=== PATIENT | male | born 1960 | race African-American/Black ===

== ENCOUNTER 2019-02-18 03:55 | Emergency (ER) | payer OTHER ==
[~2019-02-18] VITALS: Ht 182.9 cm; Wt 77.0 kg
[2019-02-18] MEDS ORDERED: SODIUM CHLORIDE 0.9% 1,000 ML IV ONE (04:13)
[2019-02-18 04:37] LABS: CHLORIDE 98 mEq/L (98-107)
[2019-02-18 05:23] LABS: BASOPHILS % 0.9 % (0.0-2.0); EOSINOPHILS % 1.4 % (0.0-5.0); HEMATOCRIT. 36.3 % (42.0-52.0); HEMOGLOBIN. 12.5 g/dL (14.0-18.0); LYMPHOCYTES % 21.4 % (20.0-50.0); MEAN CORPUSCULAR HEMOGLOBIN 34.2 pg (28.0-32.0); MEAN CORPUSCULAR VOLUME 99.7 fL (80.0-94.0); MEAN PLATELET VOLUME 9.2 fl (7.4-10.4); MONOCYTES % 11.7 % (2.0-8.0); NEUTROPHILS % 64.6 % (40.0-76.0); RED BLOOD CELL COUNT 3.65 mill/uL (4.7-6.1); RED CELL DISTRIBUTION WIDTH 13.8 % (11.6-14.6)
[2019-02-18] MEDS ORDERED: MORPHINE SULFATE 4 MG/ML CPJ (NOT FOR IM USE) IV NR (05:30)
[2019-02-18] MEDS ORDERED: SODIUM CHLORIDE 0.9% 1,000 ML IV NR (05:30)
[2019-02-18 05:35] LABS: PLATELET 59 x1000/uL (130-400)
[2019-02-18 07:36] VITALS: BP 140/85
== END 2019-02-18 07:01 | disposition short-term general hospital (02) ==
LOC: ER 03:55
DX: K85.90 Acute pancreatitis without necrosis or infection, unspecified (principal); I10 Essential (primary) hypertension; D69.6 Thrombocytopenia, unspecified; R19.7 Diarrhea, unspecified
CPT/HCPCS: 36415; 71045; 80053; 83690; 85025; 96360; 99285; J7030; Z7610

== ENCOUNTER 2019-06-04 01:03 | Inpatient (IN) | payer OTHER ==
[~2019-06-04] VITALS: Ht 172.7 cm; Wt 91.6 kg
[2019-06-04] VITALS (47 sets, daily range): BP systolic 58–158; BP diastolic 28–116
[2019-06-04] MEDS ORDERED: SODIUM CHLORIDE 0.9% 1,000 ML IV ONE ×2 (02:07→10:12)
[2019-06-04 02:43] LABS: CLARITY URINE TURBID (CLEAR); COLOR URINE DARK YELLOW (YELLOW); KETONES URINE TRACE (NEGATIVE); LEUKOCYTE ESTERASE URINE TRACE (NEGATIVE); NITRITE URINE NEGATIVE (NEGATIVE); OCCULT BLOOD URINE 1+ (NEGATIVE); PROTEIN URINE 2+ (NEGATIVE); SPECIFIC GRAVITY URINE 1.019 (1.005-1.030)
[2019-06-04] MEDS ORDERED: CEFTRIAXONE 1 G PREMIX 50 ML IV ONE (04:00)
[2019-06-04 04:11] LABS: CHLORIDE 96 mEq/L (98-107)
[2019-06-04] MEDS ORDERED: DEXTROSE 50% WATER 50ML SYRINGE IV ONE ×4 (04:21→10:15)
[2019-06-04 04:23] LABS: BASOPHILS % 0.4 % (0.0-2.0); HEMATOCRIT. 28.3 % (42.0-52.0); LYMPHOCYTES % 20.2 % (20.0-50.0); MEAN CORPUSCULAR HEMOGLOBIN 34.3 pg (28.0-32.0); MEAN CORPUSCULAR VOLUME 108.2 fL (80.0-94.0); MEAN PLATELET VOLUME 9.6 fl (7.4-10.4); MONOCYTES % 3.3 % (2.0-8.0); NEUTROPHILS % 76.1 % (40.0-76.0); RED BLOOD CELL COUNT 2.62 mill/uL (4.7-6.1); RED CELL DISTRIBUTION WIDTH 17.3 % (11.6-14.6)
[2019-06-04] MEDS ORDERED: ONDANSETRON HCL 4MG/2ML INJ ONE (05:11)
[2019-06-04] MEDS ORDERED: ONDANSETRON HCL 4MG/2ML INJ IV ONE ×2 (05:15→11:00)
[2019-06-04] MEDS ORDERED: LORAZEPAM 2MG/ML CPJ IV ONE ×4 (06:30→12:00)
[2019-06-04 07:48] LABS: PLATELET ESTIMATE MARKEDLY DECREASED
[2019-06-04 07:49] LABS: PLATELET 31 x1000/uL (130-400)
[2019-06-04] MEDS ORDERED: FOLIC ACID 1 MG, THIAMINE HCL 100 MG, MVI, ADULT NO.1 10 ML in DEXTROSE 5% WATER 1,000 ML IV ONE ×4 (10:15)
[2019-06-04] MEDS ORDERED: SUCCINYLCHOLINE CHLORIDE 200MG/10ML IV ONE ×2 (11:26→11:45)
[2019-06-04] MEDS ORDERED: ETOMIDATE 2MG/ML 10ML VIAL IV ONE ×2 (11:26→11:45)
[2019-06-04] MEDS ORDERED: PANTOPRAZOLE 80 MG in SODIUM CHLORIDE 0.9% 100 ML IV STA (11:32)
[2019-06-04] MEDS ORDERED: MIDAZOLAM HCL 50 MG in DEXTROSE 5% WATER 40 ML IV ONE ×2 (11:45→12:00)
[2019-06-04] MEDS ORDERED: SODIUM CHLORIDE 0.9% 1000ML BAG (SEPSIS BOLUS) IV ONE (11:45)
[2019-06-04] MEDS ORDERED: LEVOFLOXACIN 750MG PREMIX 150 ML IV ONE (11:45)
[2019-06-04] MEDS ORDERED: METRONIDAZOLE 500 MG PREMIX 100 ML IV ONE (11:45)
[2019-06-04] MEDS ORDERED: PANTOPRAZOLE SODIUM 40 MG/VIAL IV ONE (11:45)
[2019-06-04] MEDS ORDERED: LORAZEPAM 2MG/ML CPJ ONE ×2 (11:57→21:30)
[2019-06-04] MEDS ORDERED: NOREPINEPHRINE 4MG/250ML PMX 250 ML IV ONE (12:38)
[2019-06-04 13:19] LABS: BG BASE EXCESS -19.6 mmol/L (-2.0-2.0); BG CARBOXYHEMOGLOBIN 0.1 % (0.5-1.5); BG DEOXYHEMOGLOBIN 9.7 % (0.0-5.0); BG FRACTION INSPIRED OXYGEN 100; BG HCO3 ACT 9.2 mmol/L (22.0-26.0); BG METHEMOGLOBIN 0.5 % (0.0-1.5); BG OXYGEN SATURATION 90.2 % (92.0-98.5); BG OXYHEMOGLOBIN 89.7 % (94.0-97.0); BG PH 7.051 (7.350-7.450); BG PO2 86.9 mmHg (75.0-100.0); BG SAMPLE SITE RIGHT RADIAL; BG TIDAL VOLUME(mL) 500 mL; BG TOTAL HEMOGLOBIN 7.1 g/dL (12.0-18.0); BG VENT MODE VENT - A/C; BG VENT RATE 16 set
[2019-06-04] MEDS ORDERED: ALBUTEROL (0.083%) 2.5MG/3ML NEB HHN PRN (13:30)
[2019-06-04] MEDS ORDERED: LEVOFLOXACIN 500MG PREMIX 100 ML IV ONE (13:30)
[2019-06-04] MEDS ORDERED: PROPOFOL 10MG/ML 100ML 100 ML IV SCH (14:07)
[2019-06-04] MEDS ORDERED: NOREPINEPHRINE 8 MG in DEXT 5% WATER 242 ML IV PRN (14:15)
[2019-06-04] MEDS ORDERED: ATEN-42 MT (14:59)
[2019-06-04] MEDS ORDERED: LEVOFLOXACIN 750MG PREMIX 150 ML IV SCH (15:00)
[2019-06-04 15:02] LABS: BG BASE EXCESS -16.5 mmol/L (-2.0-2.0); BG CARBOXYHEMOGLOBIN 0.2 % (0.5-1.5); BG DEOXYHEMOGLOBIN 4.6 % (0.0-5.0); BG FRACTION INSPIRED OXYGEN 100; BG HCO3 ACT 10.8 mmol/L (22.0-26.0); BG METHEMOGLOBIN 0.3 % (0.0-1.5); BG OXYGEN SATURATION 95.4 % (92.0-98.5); BG OXYHEMOGLOBIN 94.9 % (94.0-97.0); BG PCO2 31.1 mmHg (35.0-45.0); BG PO2 100.8 mmHg (75.0-100.0); BG SAMPLE SITE RIGHT RADIAL; BG TIDAL VOLUME(mL) 500 mL; BG TOTAL HEMOGLOBIN 7.9 g/dL (12.0-18.0); BG VENT MODE VENT - A/C; BG VENT RATE 22 set
[2019-06-04] MEDS ORDERED: ONDANSETRON HCL 4MG/2ML INJ IV PRN (15:30)
[2019-06-04] MEDS ORDERED: SODIUM BICARBONATE 8.4% 1 MEQ/ML 50ML SYR IV NR ×2 (15:45→18:30)
[2019-06-04] MEDS: ALBUTEROL (0.083%) 2.5MG/3ML NEB HHN SCH ×3 (15:54→23:55)
[2019-06-04] MEDS ORDERED: DEXT 5%/0.9% NACL 1,000 ML IV SCH (16:00)
[2019-06-04] MEDS ORDERED: PANTOPRAZOLE 80 MG in SODIUM CHLORIDE 0.9% 100 ML IV SCH (16:30)
[2019-06-04] MEDS: BLOOD SUGAR DIAGNOSTIC STRIP TEST SCH ×3 (16:45→23:03)
[2019-06-04 16:55] LABS: BASOPHILS % 0.4 % (0.0-2.0); EOSINOPHILS % 0.5 % (0.0-5.0); HEMATOCRIT. 25.4 % (42.0-52.0); LYMPHOCYTES % 22.3 % (20.0-50.0); MEAN CORPUSCULAR HEMOGLOBIN 34.8 pg (28.0-32.0); MEAN CORPUSCULAR VOLUME 110.9 fL (80.0-94.0); MEAN PLATELET VOLUME 8.8 fl (7.4-10.4); MONOCYTES % 3.5 % (2.0-8.0); NEUTROPHILS % 73.3 % (40.0-76.0); RED BLOOD CELL COUNT 2.29 mill/uL (4.7-6.1); RED CELL DISTRIBUTION WIDTH 17.1 % (11.6-14.6)
[2019-06-04 17:00] LABS: PLATELET 17 x1000/uL (130-400)
[2019-06-04 17:02] LABS: CHLORIDE 104 mEq/L (98-107)
[2019-06-04] MEDS ORDERED: ALBUMIN HUMAN 25GM/100ML (25%) IV NR (17:15)
[2019-06-04] MEDS ORDERED: CALCIUM GLUCONATE 100MG/ML 10ML VIAL IV ONE (17:30)
[2019-06-04 17:35] LABS: BG BASE EXCESS -13.4 mmol/L (-2.0-2.0); BG CARBOXYHEMOGLOBIN 0.2 % (0.5-1.5); BG DEOXYHEMOGLOBIN 11.9 % (0.0-5.0); BG FRACTION INSPIRED OXYGEN 100; BG HCO3 ACT 11.9 mmol/L (22.0-26.0); BG METHEMOGLOBIN 0.6 % (0.0-1.5); BG OXYHEMOGLOBIN 87.3 % (94.0-97.0); BG PO2 70.1 mmHg (75.0-100.0); BG SAMPLE SITE RIGHT RADIAL; BG TIDAL VOLUME(mL) 500 mL; BG TOTAL HEMOGLOBIN 8.2 g/dL (12.0-18.0); BG VENT MODE VENT - A/C; BG VENT RATE 22 set
[2019-06-04] MEDS ORDERED: PHENYLEPHRINE 20 MG in DEXT 5% WATER 248 ML IV PRN (18:00)
[2019-06-04] MEDS: METRONIDAZOLE 500 MG PREMIX 100 ML IV SCH (18:10)
[2019-06-04] MEDS ORDERED: SODIUM BICARBONATE 50 MEQ in SODIUM CHLORIDE 0.45% 1,000 ML IV SCH (18:15)
[2019-06-04] MEDS ORDERED: PHYTONADIONE 10 MG in DEXTROSE 5% WATER 49 ML IV NR (18:30)
[2019-06-04] MEDS ORDERED: CALCIUM CHLORIDE 1000 MG in DEXTROSE 5% WATER 100 ML IV NR (18:30)
[2019-06-04 18:31] LABS: INR 1.5; PROTHROMBIN TIME 14.8 sec (9.6-11.0)
[2019-06-04] MEDS: MIDAZOLAM HCL 50 MG in DEXTROSE 5% WATER 40 ML IV PRN (18:37)
[2019-06-04] MEDS: THIAMINE HCL 100 MG in SODIUM CHLORIDE 0.9% 49 ML IV SCH (18:54)
[2019-06-04] MEDS: PROPOFOL 10MG/ML 100ML 100 ML IV PRN (18:57)
[2019-06-04] MEDS ORDERED: OCTREOTIDE ACETATE 50 MCG/ML 1ML IV SCH (19:00)
[2019-06-04] MEDS ORDERED: OCTREOTIDE ACETATE 50 MCG/ML 1ML IV ONE (19:00)
[2019-06-04 19:34] LABS: *AMPHETAMINES SCREEN URINE NEGATIVE (NEGATIVE); *BARBITURATES SCREEN URINE NEGATIVE (NEGATIVE); *BENZODIAZEPINES SCREEN URINE PRESUMTIVE POSITIVE (NEGATIVE); *COCAINE SCREEN URINE NEGATIVE (NEGATIVE)
[2019-06-04 19:36] LABS: CANNABINOID URINE SCREEN NEGATIVE (NEGATIVE); METHADONE URINE SCREEN NEGATIVE (NEGATIVE); OPIATES URINE SCREEN NEGATIVE (NEGATIVE); PHENCYCLIDINE URINE SCREEN NEGATIVE (NEGATIVE)
[2019-06-04] MEDS ORDERED: SODIUM CHLORIDE 0.9% 1,000 ML IV NR (19:51)
[2019-06-04] MEDS ORDERED: PANTOPRAZOLE SODIUM 40 MG/VIAL IV SCH (20:00)
[2019-06-04] MEDS: SODIUM CHLORIDE 0.9% 1,000 ML IV SCH ×3 (20:10→22:51)
[2019-06-04 20:24] LABS: BG BASE EXCESS -3.5 mmol/L (-2.0-2.0); BG CARBOXYHEMOGLOBIN 0.1 % (0.5-1.5); BG DEOXYHEMOGLOBIN 4.2 % (0.0-5.0); BG FRACTION INSPIRED OXYGEN 100; BG HCO3 ACT 20.7 mmol/L (22.0-26.0); BG METHEMOGLOBIN 0.4 % (0.0-1.5); BG OXYGEN SATURATION 95.8 % (92.0-98.5); BG OXYHEMOGLOBIN 95.3 % (94.0-97.0); BG PCO2 33.1 mmHg (35.0-45.0); BG PH 7.413 (7.350-7.450); BG PIP 32 cmH2O; BG PO2 86.1 mmHg (75.0-100.0); BG SAMPLE SITE RIGHT RADIAL; BG TIDAL VOLUME(mL) 550 mL; BG TOTAL HEMOGLOBIN 7.1 g/dL (12.0-18.0); BG VENT MODE VENT - A/C; BG VENT RATE 22 set
[2019-06-04] MEDS ORDERED: OCTREOTIDE 50 MCG in SODIUM CHLORIDE 0.9% 50 ML IV SCH (20:30)
[2019-06-04] MEDS ORDERED: OCTREOTIDE 1000MCG in SODIUM CHLORIDE 0.9% 100ML IV SCH (21:00)
[2019-06-04] MEDS: SODIUM BICARBONATE 100 MEQ in DEXTROSE 5% WATER 1,000 ML IV SCH (21:04)
[2019-06-04] MEDS ORDERED: LORAZEPAM 2MG/ML CPJ IV NR (22:08)
[2019-06-04 22:47] LABS: TOTAL IRON BINDING CAPACITY 204 ug/dL (250-450)
[2019-06-04] MEDS: VANCOMYCIN 1 G PREMIX 200 ML IV SCH (23:03)
[2019-06-04] MEDS: METOCLOPRAMIDE HCL 10MG/2ML VIAL IV SCH (23:16)
[2019-06-05] VITALS (109 sets, daily range): BP systolic 93–165; BP diastolic 43–103
[2019-06-05] MEDS: METRONIDAZOLE 500 MG PREMIX 100 ML IV SCH ×3 (00:30→16:51)
[2019-06-05] MEDS: PROPOFOL 10MG/ML 100ML 100 ML IV PRN ×4 (00:30→23:23)
[2019-06-05] MEDS: MIDAZOLAM HCL 50 MG in DEXTROSE 5% WATER 40 ML IV PRN ×3 (00:44→20:59)
[2019-06-05] MEDS: ALBUTEROL (0.083%) 2.5MG/3ML NEB HHN SCH ×5 (03:51→20:29)
[2019-06-05] MEDS: BLOOD SUGAR DIAGNOSTIC STRIP TEST SCH ×6 (04:58→23:57)
[2019-06-05] MEDS: SODIUM CHLORIDE 0.9% 1,000 ML IV SCH (05:12)
[2019-06-05] MEDS: METOCLOPRAMIDE HCL 10MG/2ML VIAL IV SCH ×4 (05:21→23:57)
[2019-06-05 07:06] LABS: CHLORIDE 100 mEq/L (98-107)
[2019-06-05 07:12] LABS: INR 1.4; PHOSPHORUS 2.7 mg/dL (2.5-4.9); PROTHROMBIN TIME 14.1 sec (9.6-11.0)
[2019-06-05] MEDS ORDERED: MAGNESIUM 4 G PREMIX 100 ML IV NR ×2 (07:30→15:00)
[2019-06-05 07:32] LABS: BASOPHILS % 0.2 % (0.0-2.0); EOSINOPHILS % 0.5 % (0.0-5.0); HEMATOCRIT. 22.9 % (42.0-52.0); HEMOGLOBIN. 8.1 g/dL (14.0-18.0); LYMPHOCYTES % 8.3 % (20.0-50.0); MEAN CORPUSCULAR HEMOGLOBIN 34.7 pg (28.0-32.0); MEAN CORPUSCULAR VOLUME 98.1 fL (80.0-94.0); MEAN PLATELET VOLUME 9.4 fl (7.4-10.4); MONOCYTES % 4.5 % (2.0-8.0); NEUTROPHILS % 86.5 % (40.0-76.0); PLATELET 72 x1000/uL (130-400); RED BLOOD CELL COUNT 2.33 mill/uL (4.7-6.1); RED CELL DISTRIBUTION WIDTH 18.7 % (11.6-14.6)
[2019-06-05 07:36] LABS: HEPATITIS B SURFACE ANTIGEN NEGATIVE
[2019-06-05 07:53] LABS: FOLIC ACID (FOLATE) SERUM > 20.00 ng/mL (>5.38); VITAMIN B12 SERUM > 2000.0 pg/mL (211-911)
[2019-06-05] MEDS ORDERED: RIFAXIMIN 550 MG TABLET PO SCH ×2 (08:00→21:00)
[2019-06-05] MEDS ORDERED: POTASSIUM CHLORIDE 20MEQ TABLET SR PO NR (08:00)
[2019-06-05] MEDS ORDERED: LIDOCAINE HCL 1% 20ML VIAL (Pyxis) INJ ONE (08:05)
[2019-06-05 08:06] LABS: HEPATITIS A AB IGM NEGATIVE (NEGATIVE)
[2019-06-05] MEDS: PANTOPRAZOLE SODIUM 40 MG/VIAL IV SCH ×2 (08:28→21:42)
[2019-06-05] MEDS: LACTULOSE 20G/30ML UDC PO SCH ×3 (08:29→21:42)
[2019-06-05] MEDS: PHYTONADIONE 10MG/ML AMP SUBCUT SCH (08:31)
[2019-06-05] MEDS: THIAMINE HCL 100 MG in SODIUM CHLORIDE 0.9% 49 ML IV SCH (08:33)
[2019-06-05 08:36] LABS: FERRITIN 4785 ng/mL (22-322)
[2019-06-05 08:45] LABS: BG BASE EXCESS -3.4 mmol/L (-2.0-2.0); BG CARBOXYHEMOGLOBIN 0.1 % (0.5-1.5); BG DEOXYHEMOGLOBIN 0.8 % (0.0-5.0); BG FRACTION INSPIRED OXYGEN 100; BG HCO3 ACT 20.2 mmol/L (22.0-26.0); BG METHEMOGLOBIN 0.7 % (0.0-1.5); BG OXYGEN SATURATION 99.2 % (92.0-98.5); BG OXYHEMOGLOBIN 98.4 % (94.0-97.0); BG PCO2 30.6 mmHg (35.0-45.0); BG PH 7.437 (7.350-7.450); BG PO2 216.9 mmHg (75.0-100.0); BG SAMPLE SITE RIGHT RADIAL; BG TIDAL VOLUME(mL) 550 mL; BG TOTAL HEMOGLOBIN 8.3 g/dL (12.0-18.0); BG VENT MODE VENT - A/C; BG VENT RATE 22 set
[2019-06-05] MEDS ORDERED: CALCIUM CHLORIDE IV SCH (09:00)
[2019-06-05] MEDS ORDERED: SODIUM CHLORIDE 0.9% IV SCH (09:00)
[2019-06-05 13:28] LABS: HEMATOCRIT 22.3 % (42.0-52.0); HEMOGLOBIN 7.9 g/dL (14.0-18.0)
[2019-06-05] MEDS ORDERED: CALCIUM GLUCONATE 100MG/ML 10ML VIAL IV ONE (14:00)
[2019-06-05] MEDS ORDERED: DIAZEPAM 5 MG/ML 2ML CPJ IV NR (14:00)
[2019-06-05] MEDS ORDERED: OCTREOTIDE 1,000 MCG in SODIUM CHLORIDE 0.9% 100 ML IV SCH (14:34)
[2019-06-05] MEDS: FENTANYL CITRATE/PF 500 MCG in SODIUM CHLORIDE 0.9% 40 ML IV PRN ×2 (14:58→20:59)
[2019-06-05] MEDS ORDERED: LEVOFLOXACIN 250MG PREMIX 50 ML IV SCH ×2 (15:00→16:00)
[2019-06-05] MEDS ORDERED: DIPHENHYDRAMINE 50MG/ML VIAL IV NR (15:00)
[2019-06-05 17:47] LABS: HEMATOCRIT 22.1 % (42.0-52.0); HEMOGLOBIN 7.6 g/dL (14.0-18.0)
[2019-06-05] MEDS ORDERED: SUCRALFATE 1G TABLET PO SCH ×2 (17:50→18:00)
[2019-06-05 17:54] LABS: CHLORIDE 106 mEq/L (98-107)
[2019-06-05 18:04] LABS: PHOSPHORUS 1.9 mg/dL (2.5-4.9)
[2019-06-05 18:10] LABS: AMYLASE 159 IU/L (25-115)
[2019-06-05] MEDS: SODIUM BICARBONATE 100 MEQ in DEXTROSE 5% WATER 1,000 ML IV SCH (18:55)
[2019-06-05] MEDS: SUCRALFATE 1 G/10 ML UDC PO SCH ×2 (18:55→23:57)
[2019-06-05] MEDS ORDERED: DEXT 5%/0.45% NACL 1000ML 1,000 ML IV SCH (20:00)
[2019-06-05] MEDS ORDERED: POTASSIUM PHOS,M-BASIC-D-BASIC 10 MMOL in DEXT 5% WATER 246.6667 ML IV SCH (21:00)
[2019-06-05] MEDS ORDERED: KCL 20MEQ/100ML PREMIX 100 ML IV SCH (21:00)
[2019-06-05] MEDS ORDERED: SODIUM CHLORIDE 0.45% 1,000 ML IV SCH (21:30)
[2019-06-05] MEDS ORDERED: PROPOFOL 10MG/ML 100ML 100 ML IV PRN (21:30)
[2019-06-05] MEDS: RIFAXIMIN 550 MG TABLET PO SCH (22:10)
[2019-06-06] VITALS (63 sets, daily range): BP systolic 130–165; BP diastolic 79–100
[2019-06-06] MEDS: ALBUTEROL (0.083%) 2.5MG/3ML NEB HHN SCH ×6 (00:07→20:19)
[2019-06-06] MEDS: METRONIDAZOLE 500 MG PREMIX 100 ML IV SCH ×3 (01:07→16:21)
[2019-06-06] MEDS: PROPOFOL 10MG/ML 100ML 100 ML IV PRN ×5 (02:19→23:56)
[2019-06-06] MEDS: BLOOD SUGAR DIAGNOSTIC STRIP TEST SCH ×6 (04:36→23:47)
[2019-06-06] MEDS: VANCOMYCIN 1 G PREMIX 200 ML IV SCH (04:37)
[2019-06-06] MEDS: FENTANYL CITRATE/PF 500 MCG in SODIUM CHLORIDE 0.9% 40 ML IV PRN ×2 (05:04→15:04)
[2019-06-06] MEDS: METOCLOPRAMIDE HCL 10MG/2ML VIAL IV SCH ×2 (05:38→12:00)
[2019-06-06] MEDS: SUCRALFATE 1 G/10 ML UDC PO SCH ×4 (05:38→23:47)
[2019-06-06] MEDS: LACTULOSE 20G/30ML UDC PO SCH (05:38)
[2019-06-06 05:48] LABS: BASOPHILS % 0.4 % (0.0-2.0); EOSINOPHILS % 0.8 % (0.0-5.0); HEMATOCRIT. 25.9 % (42.0-52.0); HEMOGLOBIN. 9.1 g/dL (14.0-18.0); LYMPHOCYTES % 10.7 % (20.0-50.0); MEAN CORPUSCULAR HEMOGLOBIN 32.9 pg (28.0-32.0); MEAN CORPUSCULAR VOLUME 93.7 fL (80.0-94.0); MEAN PLATELET VOLUME 9.4 fl (7.4-10.4); NEUTROPHILS % 83.1 % (40.0-76.0); RED BLOOD CELL COUNT 2.77 mill/uL (4.7-6.1); RED CELL DISTRIBUTION WIDTH 18.6 % (11.6-14.6)
[2019-06-06 05:51] LABS: INR 1.3; PROTHROMBIN TIME 13.6 sec (9.6-11.0)
[2019-06-06 06:02] LABS: CHLORIDE 109 mEq/L (98-107)
[2019-06-06 06:05] LABS: PLATELET 47 x1000/uL (130-400)
[2019-06-06 06:17] LABS: PHOSPHORUS 1.4 mg/dL (2.5-4.9)
[2019-06-06 08:08] LABS: BG BASE EXCESS 4.6 mmol/L (-2.0-2.0); BG CARBOXYHEMOGLOBIN 0.3 % (0.5-1.5); BG DEOXYHEMOGLOBIN 1.7 % (0.0-5.0); BG FRACTION INSPIRED OXYGEN 50; BG HCO3 ACT 28.1 mmol/L (22.0-26.0); BG METHEMOGLOBIN 0.4 % (0.0-1.5); BG OXYGEN SATURATION 98.3 % (92.0-98.5); BG OXYHEMOGLOBIN 97.6 % (94.0-97.0); BG PCO2 37.3 mmHg (35.0-45.0); BG PH 7.495 (7.350-7.450); BG PO2 147.1 mmHg (75.0-100.0); BG SAMPLE SITE RIGHT RADIAL; BG TIDAL VOLUME(mL) 550 mL; BG TOTAL HEMOGLOBIN 8.9 g/dL (12.0-18.0); BG VENT MODE VENT - A/C; BG VENT RATE 22 set
[2019-06-06] MEDS ORDERED: THIAMINE HCL 100 MG/1 ML 2ML VIAL ONE (08:25)
[2019-06-06] MEDS: PANTOPRAZOLE SODIUM 40 MG/VIAL IV SCH ×2 (08:26→20:42)
[2019-06-06] MEDS: THIAMINE HCL 100 MG in SODIUM CHLORIDE 0.9% 49 ML IV SCH (08:26)
[2019-06-06] MEDS: RIFAXIMIN 550 MG TABLET PO SCH ×2 (08:27→20:43)
[2019-06-06] MEDS: PHYTONADIONE 10MG/ML AMP SUBCUT SCH (08:27)
[2019-06-06] MEDS ORDERED: POTASSIUM PHOS,M-BASIC-D-BASIC 20 MMOL in DEXT 5% WATER 243.3333 ML IV NR ×2 (09:00→18:00)
[2019-06-06] MEDS ORDERED: MAGNESIUM 4 G PREMIX 100 ML IV NR (09:30)
[2019-06-06] MEDS: LEVOFLOXACIN 500MG PREMIX 100 ML IV SCH (11:20)
[2019-06-06 13:53] LABS: HEMATOCRIT 21.8 % (42.0-52.0); HEMOGLOBIN 8.2 g/dL (14.0-18.0)
[2019-06-06] MEDS ORDERED: CHLORDIAZEPOXIDE 25MG CAPSULE PO SCH (14:00)
[2019-06-06] MEDS ORDERED: LACTULOSE 20G/30ML UDC PO SCH (14:00)
[2019-06-06] MEDS: VANCOMYCIN 1250MG in DEXTROSE 5% WATER 250ML IV SCH ×2 (14:35→23:47)
[2019-06-06] MEDS: FOLIC ACID 1 MG, THIAMINE HCL 100 MG, MVI, ADULT NO.1 10 ML in SODIUM CHLORIDE 0.45% 1,... IV SCH ×4 (14:35)
[2019-06-06 16:16] LABS: BASOPHILS % 0.4 % (0.0-2.0); EOSINOPHILS % 1.5 % (0.0-5.0); HEMOGLOBIN. 8.1 g/dL (14.0-18.0); LYMPHOCYTES % 10.4 % (20.0-50.0); MEAN CORPUSCULAR HEMOGLOBIN 32.7 pg (28.0-32.0); MEAN PLATELET VOLUME 8.2 fl (7.4-10.4); MONOCYTES % 5.8 % (2.0-8.0); NEUTROPHILS % 81.9 % (40.0-76.0); PLATELET 79 x1000/uL (130-400); RED BLOOD CELL COUNT 2.47 mill/uL (4.7-6.1); RED CELL DISTRIBUTION WIDTH 19.6 % (11.6-14.6)
[2019-06-06 16:27] LABS: PHOSPHORUS 2.2 mg/dL (2.5-4.9)
[2019-06-06 16:29] LABS: INR 1.2; PROTHROMBIN TIME 12.7 sec (9.6-11.0)
[2019-06-06] MEDS ORDERED: SODIUM CHLORIDE 0.45% 1,000 ML IV SCH (21:00)
[2019-06-06 21:51] LABS: HEMATOCRIT 26.1 % (42.0-52.0); HEMOGLOBIN 9.2 g/dL (14.0-18.0)
[2019-06-06] MEDS ORDERED: DEXTROSE 50% WATER 50ML SYRINGE IV PRN ×2 (23:45)
[2019-06-07] VITALS (43 sets, daily range): BP systolic 122–150; BP diastolic 71–89
[2019-06-07] MEDS: ALBUTEROL (0.083%) 2.5MG/3ML NEB HHN SCH ×6 (00:30→19:53)
[2019-06-07 00:53] LABS: HEMATOCRIT 25.4 % (42.0-52.0)
[2019-06-07] MEDS: METRONIDAZOLE 500 MG PREMIX 100 ML IV SCH ×3 (01:06→16:24)
[2019-06-07 02:22] LABS: SODIUM URINE RANDOM 97 mEq/L
[2019-06-07] MEDS: FENTANYL CITRATE/PF 500 MCG in SODIUM CHLORIDE 0.9% 40 ML IV PRN ×3 (02:33→20:52)
[2019-06-07] MEDS: PROPOFOL 10MG/ML 100ML 100 ML IV PRN ×5 (03:24→20:54)
[2019-06-07] MEDS: BLOOD SUGAR DIAGNOSTIC STRIP TEST SCH ×5 (04:07→20:10)
[2019-06-07 05:31] LABS: INR 1.2; PROTHROMBIN TIME 12.4 sec (9.6-11.0)
[2019-06-07 05:35] LABS: CHLORIDE 108 mEq/L (98-107)
[2019-06-07] MEDS: SUCRALFATE 1 G/10 ML UDC PO SCH ×3 (05:39→17:22)
[2019-06-07] MEDS: METOCLOPRAMIDE HCL 10MG/2ML VIAL IV SCH ×3 (05:39→17:22)
[2019-06-07 05:49] LABS: PHOSPHORUS 1.5 mg/dL (2.5-4.9)
[2019-06-07 06:00] LABS: BASOPHILS % 1.4 % (0.0-2.0); EOSINOPHILS % 2.2 % (0.0-5.0); HEMATOCRIT. 26.5 % (42.0-52.0); HEMOGLOBIN. 9.3 g/dL (14.0-18.0); LYMPHOCYTES % 15.2 % (20.0-50.0); MEAN CORPUSCULAR HEMOGLOBIN 32.5 pg (28.0-32.0); MEAN CORPUSCULAR VOLUME 92.5 fL (80.0-94.0); MEAN PLATELET VOLUME 9.9 fl (7.4-10.4); MONOCYTES % 8.2 % (2.0-8.0); PLATELET 60 x1000/uL (130-400); RED BLOOD CELL COUNT 2.87 mill/uL (4.7-6.1); RED CELL DISTRIBUTION WIDTH 18.7 % (11.6-14.6)
[2019-06-07 07:31] LABS: BG BASE EXCESS 1.7 mmol/L (-2.0-2.0); BG CARBOXYHEMOGLOBIN 0.3 % (0.5-1.5); BG DEOXYHEMOGLOBIN 2.2 % (0.0-5.0); BG FRACTION INSPIRED OXYGEN 40; BG HCO3 ACT 25.9 mmol/L (22.0-26.0); BG METHEMOGLOBIN 0.4 % (0.0-1.5); BG OXYGEN SATURATION 97.8 % (92.0-98.5); BG OXYHEMOGLOBIN 97.1 % (94.0-97.0); BG PCO2 38.8 mmHg (35.0-45.0); BG PH 7.442 (7.350-7.450); BG PO2 117.8 mmHg (75.0-100.0); BG SAMPLE SITE RIGHT RADIAL; BG TIDAL VOLUME(mL) 550 mL; BG TOTAL HEMOGLOBIN 10.9 g/dL (12.0-18.0); BG VENT MODE VENT - A/C; BG VENT RATE 16 set
[2019-06-07] MEDS ORDERED: POTASSIUM PHOS,M-BASIC-D-BASIC 30 MMOL in DEXT 5% WATER 500 ML IV NR (08:00)
[2019-06-07] MEDS: PANTOPRAZOLE SODIUM 40 MG/VIAL IV SCH ×2 (08:03→21:14)
[2019-06-07] MEDS: RIFAXIMIN 550 MG TABLET PO SCH ×2 (08:03→21:14)
[2019-06-07 08:07] LABS: *CREATININE RANDOM URINE 25.6 mg/dL (Not Estab.); MICROALBUMIN RANDOM URINE 34.4 ug/mL (Not Estab.)
[2019-06-07] MEDS: INSULIN LISPRO 100 UNITS/ML SUBCUT SCH ×3 (09:15→16:16)
[2019-06-07] MEDS: FOLIC ACID 1 MG, THIAMINE HCL 100 MG, MVI, ADULT NO.1 10 ML in SODIUM CHLORIDE 0.45% 1,... IV SCH ×4 (09:49)
[2019-06-07] MEDS ORDERED: FUROSEMIDE 40MG/4ML VIAL IVP NR (10:15)
[2019-06-07] MEDS: LEVOFLOXACIN 500MG PREMIX 100 ML IV SCH (10:22)
[2019-06-07] MEDS: VANCOMYCIN 1250MG in DEXTROSE 5% WATER 250ML IV SCH (11:37)
[2019-06-07] MEDS ORDERED: POTASSIUM CHLORIDE INJ 40 MEQ in DEXT 5% WATER 250 ML IV NR (14:00)
[2019-06-07] MEDS ORDERED: INSLIS SUBCUT (15:28)
[2019-06-07 18:35] LABS: HEMATOCRIT 29.1 % (42.0-52.0); HEMOGLOBIN 10.1 g/dL (14.0-18.0)
[2019-06-07] MEDS ORDERED: INSULIN LISPRO 100 UNITS/ML SUBCUT SCH (20:00)
== END 2019-06-07 23:16 | disposition short-term general hospital (02) | DRG 208 ==
LOC: ER 01:03 → ENRESERV 10:44 → CANRESERV 10:44 → ENRESERV 11:46 → CANRESERV 11:46 → EDBEDREQSVC 11:49 → ENRESERV 11:59 → EDBEDREQ 12:06 → ENRESERV 12:09 → CVICU 13:43
PROVIDERS: ADMIT Family Medicine; ATTEND Family Medicine
PROC: 5A1945Z Respiratory Ventilation, 24-96 Consecutive Hours (ICD-10-PCS; principal; 2019-06-04)
PROC: 0BH17EZ Insertion of Endotracheal Airway into Trachea, Via Natural or Artificial Opening (ICD-10-PCS; 2019-06-04)
PROC: 06HY33Z Insertion of Infusion Device into Lower Vein, Percutaneous Approach (ICD-10-PCS; 2019-06-04)
PROC: B54BZZA Ultrasonography of Right Lower Extremity Veins, Guidance (ICD-10-PCS; 2019-06-04)
PROC: 30233K1 Transfusion of Nonautologous Frozen Plasma into Peripheral Vein, Percutaneous Approach (ICD-10-PCS; 2019-06-04)
PROC: 30233N1 Transfusion of Nonautologous Red Blood Cells into Peripheral Vein, Percutaneous Approach (ICD-10-PCS; 2019-06-04)
PROC: 30233R1 Transfusion of Nonautologous Platelets into Peripheral Vein, Percutaneous Approach (ICD-10-PCS; 2019-06-04)
PROC: 05HY33Z Insertion of Infusion Device into Upper Vein, Percutaneous Approach (ICD-10-PCS; 2019-06-05)
PROC: 0D9670Z Drainage of Stomach with Drainage Device, Via Natural or Artificial Opening (ICD-10-PCS; 2019-06-05)
PROC: B54MZZA Ultrasonography of Right Upper Extremity Veins, Guidance (ICD-10-PCS; 2019-06-05)
PROC: 0DB68ZX Excision of Stomach, Via Natural or Artificial Opening Endoscopic, Diagnostic (ICD-10-PCS; 2019-06-05)
DX: J96.00 Acute respiratory failure, unspecified whether with hypoxia or hypercapnia (principal); E43 Unspecified severe protein-calorie malnutrition; J18.9 Pneumonia, unspecified organism; K85.90 Acute pancreatitis without necrosis or infection, unspecified; K25.4 Chronic or unspecified gastric ulcer with hemorrhage; K22.11 Ulcer of esophagus with bleeding; K29.71 Gastritis, unspecified, with bleeding; D62 Acute posthemorrhagic anemia; D68.9 Coagulation defect, unspecified; N17.9 Acute kidney failure, unspecified; E87.2 Acidosis; J98.11 Atelectasis; G93.40 Encephalopathy, unspecified; F10.129 Alcohol abuse with intoxication, unspecified; R73.9 Hyperglycemia, unspecified; K70.10 Alcoholic hepatitis without ascites; D69.6 Thrombocytopenia, unspecified; I95.9 Hypotension, unspecified; T78.3XXA Angioneurotic edema, initial encounter; E87.6 Hypokalemia; Y90.9 Presence of alcohol in blood, level not specified; E16.2 Hypoglycemia, unspecified; T50.995A Adverse effect of other drugs, medicaments and biological substances, initial encounter; E78.1 Pure hyperglyceridemia; E83.42 Hypomagnesemia; I10 Essential (primary) hypertension; K70.31 Alcoholic cirrhosis of liver with ascites; K70.11 Alcoholic hepatitis with ascites; Z88.0 Allergy status to penicillin; Z88.2 Allergy status to sulfonamides; Z68.30 Body mass index [BMI] 30.0-30.9, adult; Y92.89 Other specified places as the place of occurrence of the external cause
CPT/HCPCS: 36415; 36573; 36600; 71045; 73090; 76700; 76775; 80048; 80076; 80202; 80305; 81003; 82043; 82140; 82150; 82248; 82270; 82310; 82375; 82570; 82607; 82728; 82746; 82805; 82962; 83540; 83550; 83605; 83615; 83735; 84100; 84132; 84145; 84156; 84300; 84478; 85014; 85018; 85044; 85049; 86705; 86709; 86803; 86850; 86900; 86920; 86927; 87070; 87340; 88305; 88313; 93005; 93306; 94002; 94003; 94640; 99285; C1725; C9113; J0330; J0696; J1200; J1940; J1956; J2060; J2250; J2354; J2370; J2405; J2704; J2765; J3010; J3370; J3411; J3430; J3475; J3480; J3490; J7030; J7042; J7050; J7060; J7070; J7611; P9016; P9017; P9034; P9047